=== PATIENT | female | born 1965 | race Caucasian/White ===

== ENCOUNTER 2017-03-31 09:45 | Outpatient (CLI) | payer OTHER | END 2017-03-31 09:46 | disposition home or self-care (01) | LOC: BICMAMMO 09:45 | PROVIDERS: ATTEND Family Medicine | DX: Z12.31 Encounter for screening mammogram for malignant neoplasm of breast (principal); Z80.3 Family history of malignant neoplasm of breast | CPT/HCPCS: 77063; 77067 ==

== ENCOUNTER 2018-04-23 10:06 | Outpatient (CLI) | payer OTHER | END 2018-04-23 10:07 | disposition home or self-care (01) | LOC: BICMAMMO 10:06 | PROVIDERS: ATTEND Physician Assistant | DX: Z12.31 Encounter for screening mammogram for malignant neoplasm of breast (principal); Z80.3 Family history of malignant neoplasm of breast | CPT/HCPCS: 77063; 77067 ==

== ENCOUNTER 2019-09-14 08:32 | Outpatient (CLI) | payer OTHER ==
--- NOTE | 2019-09-14 11:41 | MMO ---
Bilateral MAMMO Bilat Screen [facility]. CLINICAL HISTORY: Patient is 54 years old and is seen for screening. The patient has the following family history of breast cancer: mother, at age 65. The patient has no personal history of cancer. VIEWS: The views performed were: bilateral craniocaudal with tomosynthesis and bilateral mediolateral oblique with tomosynthesis. FILMS COMPARED: The present examination has been compared to prior imaging studies performed at [facility] [place] on 01/11/2015, 03/25/2016, 03/31/2017 and 04/23/2018. This study has been interpreted with the assistance of computer-aided detection. MAMMOGRAM FINDINGS: There are scattered fibroglandular densities. There are no suspicious masses, suspicious calcifications, or new areas of architectural distortion. IMPRESSION: THERE IS NO MAMMOGRAPHIC EVIDENCE OF MALIGNANCY. A ROUTINE FOLLOW-UP MAMMOGRAM IN 1 YEAR IS RECOMMENDED. THE RESULTS OF THIS EXAM WERE SENT TO THE PATIENT. ACR BI-RADS Category 1 - Negative MAMMOGRAPHY NOTE: 1. A negative mammogram report should not delay a biopsy if a dominant of clinically suspicious mass is present. 2. Approximately 10% to 15% of breast cancers are not detected by mammography. 3. Adenosis and dense breasts may obscure an underlying neoplasm. Reported by: ELIS CARTWRIGHT MD Electonically Signed: [id number]
== END 2019-09-14 08:33 | disposition home or self-care (01) ==
LOC: BICMAMMO 08:32
PROVIDERS: ATTEND Physician Assistant
DX: Z12.31 Encounter for screening mammogram for malignant neoplasm of breast (principal); Z80.3 Family history of malignant neoplasm of breast
CPT/HCPCS: 77063; 77067

== ENCOUNTER 2020-10-17 07:50 | Outpatient (CLI) | payer OTHER | END 2020-10-17 07:51 | disposition home or self-care (01) | LOC: BICMAMMO 07:50 | PROVIDERS: ATTEND Physician Assistant | DX: Z12.31 Encounter for screening mammogram for malignant neoplasm of breast (principal); Z80.3 Family history of malignant neoplasm of breast | CPT/HCPCS: 77063; 77067 ==

== ENCOUNTER 2021-07-31 08:23 | Outpatient (CLI) | payer OTHER | END 2021-07-31 08:24 | disposition home or self-care (01) | LOC: CT 08:23 | PROVIDERS: ATTEND Physician Assistant | DX: R10.9 Unspecified abdominal pain (principal); N20.0 Calculus of kidney | CPT/HCPCS: 74177 ==

== ENCOUNTER 2021-11-08 08:15 | Outpatient (CLI) | payer OTHER | END 2021-11-08 08:16 | disposition home or self-care (01) | LOC: BICMAMMO 08:15 | PROVIDERS: ATTEND Physician Assistant | DX: Z12.31 Encounter for screening mammogram for malignant neoplasm of breast (principal); Z80.3 Family history of malignant neoplasm of breast | CPT/HCPCS: 77063; 77067 ==

== ENCOUNTER 2022-02-25 15:43 | Day surgery (SDC) | payer OTHER ==
[~2022-02-25 15:43] MED LIST: Iopamidol-370 76% 500 ML 1 ML ONE
[2022-02-25 16:13] LABS: #Eosinphils 0.2 thou/uL (0.0-0.7); #Lymphocytes 2.4 thou/uL (1.20-3.40); #Monocytes 0.5 thou/uL (0.11-0.59); #Neutrophils 8.7 thou/uL (1.40-6.50); %Basophils 0.3 % (0.0-1.0); %Eosinophils 1.6 % (0.0-10.0); %Lymphocytes 20.1 % (21.0-51.0); %Monocytes 4.6 % (0.0-10.0); %Neutrophils 73.5 % (42.0-75.0); Hemoglobin 14.1 g/dL (12.0-16.0); Mean Corpuscular HGB CONC 33.7 g/dL (32.0-36.0); Mean Corpuscular Hemoglobin 32.5 pg (27.0-31.0); Mean Corpuscular Volume 96.3 fl (78.0-98.0); Mean Platelet Volume 8.6 fL (7.4-10.4); Platelet Count 251 10x3/uL (130-400); RBC Distribution Width 11.9 % (11.5-14.5); Red Blood Cell (RBC) Count 4.34 mill/uL (4.20-5.40); White Blood Cell (WBC) Count 11.9 10x3/uL (4.8-10.8)
[2022-02-25 16:28] LABS: Bilirubin Negative (Negative); Blood, Urine Negative (Negative); Clarity Clear (Clear); Glucose, Urine (Dipstick) Normal (Negative); Ketone, Urine Negative (Negative); Leukocyte Negative Leu/uL (Negative); Nitrite Negative (Negative); Protein, Urine (Dipstick) Negative (Neg-Trace); Specific Gravity, Urine 1.006 (1.002-1.036); Urobilinogen Normal mg/dL (Less than 2)
[2022-02-25 16:35] LABS: ALT (SGPT) 12 U/L (8-55); AST (SGOT) 12 U/L (5-34); Albumin 4.5 g/dL (3.5-5.0); Alkaline Phosphatase 63 U/L (40-110); Anion Gap 13 mmol/L (10-20); BUN (Urea Nitrogen) 9 mg/dL (9.8-20.1); Bilirubin, Total 0.8 mg/dL (0.2-1.2); Calc. Creatinine Clearance 0 mL/min (70-130); Carbon Dioxide 26 mmol/L (22-29); Chloride 104 mmol/L (98-107); Estimated GFR 83; Globulin 3.2 g/dL (2.4-3.5); Glucose 85 mg/dL (70-105); Lipase 31 U/L (8-78); Potassium 4.1 mmol/L (3.5-5.1); Protein, Total 7.7 g/dL (6.0-8.3); Sodium 139 mmol/L (136-145)
[2022-02-25] MEDS ORDERED: Cefepime 2 GM VIAL ONE (17:14)
[2022-02-25] MEDS ORDERED: metroNIDAZOLE 500 MG/100 ML BAG ONE (17:24)
[2022-02-25] MEDS ORDERED: Morphine 4 MG/ML VIAL ONE (17:30)
[2022-02-25] MEDS ORDERED: Ondansetron PF 4 MG/2 ML Vial ONE ×2 (17:30→18:35)
[2022-02-25] MEDS ORDERED: Bupivacaine/Epinephrine 0.25% 30 ML VIAL ONE (17:42)
[2022-02-25] MEDS ORDERED: Bupivacaine HCl 0.5%/Epinephrine 1:200,000/PF 30 ml Vial ONE (17:42)
[2022-02-25] MEDS ORDERED: fentaNYL PF 100 MCG/2 ML SYRINGE ONE (17:51)
[2022-02-25] MEDS ORDERED: Midazolam HCl 2 mg/2 ml Vial ONE (17:51)
[2022-02-25] MEDS ORDERED: Dexamethasone 20 MG/5 ML VIAL ONE (18:35)
[2022-02-25] MEDS ORDERED: NEOSTIGMINE 3 MG/3 ML SYR 3 MG/3 ML SYRINGE ONE (18:35)
[2022-02-25] MEDS ORDERED: Glycopyrrolate 0.2 MG/ML 5 ML SYRINGE ONE (18:35)
[2022-02-25] MEDS ORDERED: PROPOFOL 200 MG/20 ML VIAL ONE (18:35)
[2022-02-25] MEDS ORDERED: Phenylephrine 10 MG/ML VIAL ONE (18:35)
[2022-02-25] MEDS ORDERED: Ketorolac Tromethamine 30 MG/ML VIAL ONE (18:35)
[2022-02-25] MEDS ORDERED: Rocuronium Bromide 10 MG/ML (10ML VIAL) ONE (18:35)
[2022-02-25] MEDS ORDERED: SUGAMMADEX SODIUM 200 MG/2 ML VIAL ONE (19:25)
[2022-02-25] MEDS ORDERED: FENTANYL 50 MCG/ML 1 ML VIAL ONE (21:08)
[2022-02-25] MEDS ORDERED: HYDROcodone/Acetaminophen 5/325 mg Tablet ONE (21:16)
== END 2022-02-25 21:40 | disposition home or self-care (01) ==
LOC: ERS 15:43 → SDC 17:55
PROVIDERS: ATTEND Surgery
PROC: 0DTJ4ZZ Resection of Appendix, Percutaneous Endoscopic Approach (ICD-10-PCS; principal; 2022-02-25)
DX: K35.30 Acute appendicitis with localized peritonitis, without perforation or gangrene (principal); K38.8 Other specified diseases of appendix; N20.0 Calculus of kidney; Z87.891 Personal history of nicotine dependence; Z88.0 Allergy status to penicillin
CPT/HCPCS: 36415; 74177; 80053; 81003; 83690; 85025; 88304; J0692; J1100; J1885; J2250; J2270; J2370; J2405; J2704; J3010; Q9967

== ENCOUNTER 2022-11-27 07:40 | Outpatient (CLI) | payer OTHER | END 2022-11-27 07:41 | disposition home or self-care (01) | LOC: BICMAMMO 07:40 | PROVIDERS: ATTEND Physician Assistant | DX: Z12.31 Encounter for screening mammogram for malignant neoplasm of breast (principal); Z80.3 Family history of malignant neoplasm of breast | CPT/HCPCS: 77063; 77067 ==